=== PATIENT | male | born 2000 | race Caucasian/White ===

== ENCOUNTER 2019-04-16 06:28 | Emergency (ER) | payer MEDICAID, OTHER ==
[2019-04-16 06:42] VITALS: O2SAT 99
[2019-04-16] MEDS ORDERED: Marcaine 0.5% SDV 10 ML ONE (07:09)
[2019-04-16] MEDS ORDERED: Marcaine 0.5% SDV 10 ML IJ ONE (07:20)
[2019-04-16] MEDS ORDERED: BACIGUENT PACKET TP ONE (07:28)
--- NOTE | 2019-04-16 07:34 | ERPHSYRPT ---
- History of Present Illness Time Seen by Provider: 04/16/19 07:19 Source: patient Exam Limitations: no limitations Patient Subjective Stated Complaint: cutting a pizza and cleaning the knife and cut his finger Triage Nursing Assessment: pt A/O speech clear, denies pain or disc. resp easy. left middle finger with laceration noted Physician History: accidently lacerated his left middle finger at work this am. no weakness or sensory defecit. no prior hx. no other complaints; right handed Occurred: just prior to arrival, this morning Method of Injury: incised Quality: constant, aching Severity of Pain-Max: mild Severity of Pain-Current: mild Extremities Pain Location: 3rd finger: left (volar aspect; mid phalanx; ) Modifying Factors: Improves With: nothing Associated Symptoms: none Allergies/Adverse Reactions: No Known Drug Allergies Allergy (Unverified 04/16/19 06:42) Hx Tetanus, Diphtheria Vaccination/Date Given: Yes Hx Influenza Vaccination/Date Given: No Hx Pneumococcal Vaccination/Date Given: No Immunizations Up to Date: Yes - Review of Systems Constitutional: No Symptoms Eyes: No Symptoms Ears, Nose, & Throat: No Symptoms Respiratory: No Cough, No Dyspnea, No Wheezing Cardiac: No Chest Pain, No Palpitations, No Syncope Abdominal/Gastrointestinal: No Abdominal Pain, No Nausea, No Vomiting, No Diarrhea Genitourinary Symptoms: No Symptoms Musculoskeletal: Injury (1.5 cm lac to voalr aspect mid left mid phalanx; no FB ; no active bleeding; ) Skin: No Symptoms Neurological: No Symptoms Psychological: No Symptoms - Past Medical History Neurological History: No Pertinent History ENT History: No Pertinent History Cardiac History: No Pertinent History Respiratory History: No Pertinent History Endocrine Medical History: No Pertinent History Musculoskeletal History: No Pertinent History GI Medical History: No Pertinent History History: No Pertinent History Psycho-Social History: No Pertinent History 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 - Past Surgical History Past Surgical History: Yes Neuro Surgical History: No Pertinent History Cardiac: No Pertinent History Respiratory: No Pertinent History Gastrointestinal: No Pertinent History Genitourinary: No Pertinent History Musculoskeletal: Orthopedic Surgery Male Surgical History: No Pertinent History - Social History Smoking Status: Never smoker Exposure to second hand smoke: No Drug Use: none Significant Family History: no pertinent family hx - Female History Hx Now: No - Nursing Vital Signs Nursing Vital Signs: Initial Vital Signs Temperature 97.8 F 04/16/19 06:28 Pulse Rate 83 04/16/19 06:28 Respiratory Rate 18 04/16/19 06:28 Blood Pressure 147/91 04/16/19 06:28 O2 Sat by Pulse Oximetry 99 04/16/19 06:28 Pain Scale Pain Intensity 0 - Physical Exam General Appearance: mild distress, alert Eyes, Ears, Nose, Throat Exam: normal ENT inspection Neck Exam: normal inspection, non-tender, supple, full range of motion Cardiovascular/Respiratory Exam: chest non-tender, normal breath sounds, regular rate/rhythm, heart sounds normal, no JVD, no M/R/G Abdominal Exam: non-tender, soft, no organomegaly Back Exam: normal range of motion, No rash Shoulder Exam: normal inspection, non-tender, no evidence of injury, normal ROM Elbow/Forearm Exam: normal inspection, non-tender, no evidence of injury, normal ROM Wrist Exam: normal inspection, normal ROM Hand Exam: normal inspection (right), non-tender, normal ROM, laceration (1.5 cm lac to voalr aspect mid left mid phalanx; no FB; no active bleeding;two pt discrimination dstal to cut good), No bone tenderness, No infection Neuro/Tendon Exam: normal sensation, normal motor functions, normal tendon functions, responds to pain, no evidence tendon injury, No motor deficit, No sensory deficit Mental Status Exam: alert, oriented x 3, cooperative Skin Exam: normal color, warm, dry, No rash SpO2 Interpretation: normal SpO2: 99 O2 Delivery: Room Air Procedures - Laceration/Wound Repair Left Volar Other Wound Location: Left, hand (middle finger; mid phalanx ; 1.5 cm) Wound Length (cm): 1.5 Wound's Depth, Shape: linear, into subcut (explored; no nerve or tendon injury noted; no FB; minimla bleeding) Wound Explored: clean Irrigated: Yes Hibiclens Prep: Yes Anesthesia: local, marcaine 0.5 Volume Anesthetic (ccs): 3 Wound Repaired With: sutures Suture Size/Type: 5-0 Number of Sutures: 4 Layer Closure?: No Sterile Dressing Applied?: Yes Splint Applied?: No Sling Applied?: No - Course Nursing assessment & vital signs reviewed: Yes Ordered Tests: Active Orders 24 hr Category Date Time Status Wound Care STAT Care 04/16/19 07:28 Active Medication Summary Discontinued Medications Generic Name Dose Route Start Last Admin Trade Name Dae PRN Reason Stop Dose Admin Bacitracin Zinc 0.9 gm 04/16/19 07:28 Baciguent Packet TP 04/16/19 07:29 STAT ONE Bupivacaine HCl Confirm 04/16/19 07:09 Marcaine 0.5% Sdv 10 Ml Administered 04/16/19 07:10 Dose 10 ml .ROUTE .STK-MED ONE Bupivacaine HCl 5 ml 04/16/19 07:20 04/16/19 07:21 Marcaine 0.5% Sdv 10 Ml IJ 04/16/19 07:21 5 ml STAT ONE Administration - Progress Progress: improved, re-examined Progress Note: 04/16/19 07:46 instructions given; patient tolorated well; Counseled pt/family regarding: diagnosis, need for follow-up - Departure Departure Disposition: Home Clinical Impression: 1.5 cm laceration left mid finger Condition: Stable Critical Care Time: No Referrals: ALEX WHALEY MD [Primary Care Provider] - Instructions: Laceration Repair Additional Instructions: clean and dry; bacitracin; tylenol; SR 7-10 days follow up LMD as needed
[2019-04-16] MEDS ORDERED: BACIGUENT PACKET ONE (07:45)
[2019-04-16 07:54] VITALS: BP 110/68; PULSE 80
== END 2019-04-16 07:56 | disposition home or self-care (01) ==
LOC: ED 06:28
DX: S61.213A Laceration without foreign body of left middle finger without damage to nail, initial encounter (principal); W26.0XXA Contact with knife, initial encounter; Y93.G1 Activity, food preparation and clean up
CPT/HCPCS: 12001; 96372; 99283; A9270-GY